=== PATIENT | female | born 2000 | race Two or more races ===

== ENCOUNTER 2022-03-11 07:01 | Observation (INO) | payer MEDICAID ==
[~2022-03-11] VITALS: Ht 157.5 cm; Wt 65.0 kg
[2022-03-11 07:25] VITALS: BP 122/74
[2022-03-11] MEDS ORDERED: TERBUTALINE SULFATE 1 MG/ML 1ML VIAL SC SCH (08:30)
== END 2022-03-11 09:34 | disposition home or self-care (01) ==
LOC: ER 07:01 → LDRP 07:37
PROVIDERS: ADMIT Obstetrics & Gynecology; ATTEND Obstetrics & Gynecology
DX: O26.892 Other specified pregnancy related conditions, second trimester (principal); R10.10 Upper abdominal pain, unspecified; H53.9 Unspecified visual disturbance; O99.891 Other specified diseases and conditions complicating pregnancy; M54.9 Dorsalgia, unspecified; O21.2 Late vomiting of pregnancy; Z3A.23 23 weeks gestation of pregnancy
CPT/HCPCS: 59025; 81002; 94760; 96372; 99284; G0378; J3105

== ENCOUNTER 2022-03-13 16:20 | Observation (INO) | payer MEDICAID ==
[2022-03-13 18:12] LABS: Alanine Aminotransferase 31 U/L (13-56); Albumin 2.9 g/dL (3.4-5.0); Anion Gap 12 (5-15); Aspartate Aminotransferase 29 U/L (15-37); BUN/Creatinine Ratio 15.4; Blood Urea Nitrogen 10 mg/dL (7-18); Calcium 8.8 mg/dL (8.5-10.1); Carbon Dioxide 18 mmol/L (21-32); Chloride 110 mmol/L (98-107); GFR African American 151 mL/min; GFR Non-African American 125 mL/min; Glucose 62 mg/dL (74-106); Potassium 3.9 mmol/L (3.5-5.1); Sodium 140 mmol/L (136-145)
[2022-03-13 18:15] LABS: Alkaline Phosphatase 93 U/L (45-117); Bilirubin, Total 0.4 mg/dL (0.2-1.0); Total Protein 7.9 g/dL (6.4-8.2)
[2022-03-13 18:29] LABS: Basophils # (auto) 0 10 ^3/uL (0-0.2); Basophils % (auto) 0.1 % (0.0-2.0); Eosinophils # (auto) 0.1 10 ^3/uL (0-0.8); Eosinophils % (auto) 1.2 % (0.0-7.0); Hematocrit 29.5 % (36.0-46.0); Hemoglobin 9.1 g/dL (12.2-16.2); Lymphocytes # (auto) 1.8 10 ^3/uL (0.4-5.4); Lymphocytes % (auto) 18.4 % (10.0-50.0); Mean Corpuscular Hgb Conc. 30.8 g/dL (32.0-36.0); Mean Corpuscular Volume 74.8 fL (80.0-100.0); Monocytes # (auto) 0.8 10 ^3/uL (0-1.3); Monocytes % (auto) 8.7 % (0.0-12.0); Neutrophils # (auto) 6.9 10 ^3/uL (1.6-8.6); Neutrophils % (auto) 71.6 % (37.0-80.0); Nucleated Red Blood Cells % 0.2 %; Red Blood Cells 3.95 10^6/uL (4.0-5.20); Red Cell Distribution Width 16.1 % (11.8-14.3); White Blood Cell 9.6 10^3/uL (4.4-10.8)
[2022-03-13] MEDS ORDERED: NIF10C PO (18:30)
[2022-03-13 18:41] LABS: INR 0.9 (0.9-1.15); Partial Thromboplastin Time 22.3 sec (24.6-33.4)
[2022-03-13 19:53] LABS: Urine Bacteria NONE SEEN /hpf (None Seen); Urine Blood Negative /uL (Negative); Urine Hyaline Cast FEW /lpf (0 - 2); Urine Mucus FEW (None Seen); Urine Specific Gravity 1.015 (1.001-1.035); Urine WBC 1 /hpf (0 - 5)
[2022-03-13 21:07] LABS: Amphetamine Screen, Urine NEGATIVE (NEGATIVE); Barbiturate Scree,Urine NEGATIVE (NEGATIVE); Benzodiazephine Screen, Urine NEGATIVE (NEGATIVE); Cannabinoid Screen, Urine NEGATIVE (NEGATIVE); Cocaine Screen, Urine NEGATIVE (NEGATIVE); Opiate Scree,Urine NEGATIVE (NEGATIVE); Phencyclidine Screen, Urine NEGATIVE (NEGATIVE)
[2022-03-15 07:06] LABS: Rubella Antibodies, IgG 6.86 index (Immune >0.99)
[2022-03-15 08:06] LABS: RPR Non Reactive (Non Reactive)
== END 2022-03-13 18:37 | disposition home or self-care (01) ==
LOC: LDRP 16:20
PROVIDERS: ADMIT Obstetrics & Gynecology; ATTEND Obstetrics & Gynecology
DX: O60.02 Preterm labor without delivery, second trimester (principal); O62.9 Abnormality of forces of labor, unspecified; Z3A.24 24 weeks gestation of pregnancy; Z79.899 Other long term (current) drug therapy
CPT/HCPCS: 36415; 59025; 76805; 80053; 80307; 81001; 81002; 85025; 85610; 85730; 86592; 86703; 86762; 86850; 86900; 86901; 87340; 94760; G0378